=== PATIENT | female | born 1980 | race Caucasian/White ===

== ENCOUNTER 2017-08-20 13:09 | Emergency (ER) | payer OTHER ==
[~2017-08-20] VITALS: Ht 157.5 cm; Wt 88.6 kg
[2017-08-20 14:12] VITALS: BP 135/88; PULSE 85; RESP 18; O2SAT 100
--- NOTE | 2017-08-20 15:13 | ED.REPORT ---
HPI-Back Pain Under 40 Date of Service Aug 20, 2017 ED Provider: Eriberto Cheek MD Patient is a 36 year old female with a history of bowel obstruction and L3-L4 surgery who presents to the ED complaining of back pain onset 3 days ago. Associated symptoms include left leg weakness, numbness of the left foot, constipation, lower abdominal pain and urinary incontinence. Patient also reports that she has shooting pain down her left leg with movement. She denies chest pain. The patient reports that yesterday her leg gave out and she had an episode of leaked urine. Then 10 minutes later, she had another episode of weakness and urinary incontinence. The patient was seen at an ED yesterday where she was diagnosed with sciatica and prescribed Flexeril. She reports that she has not had a bowel movement for the past 5 days and started to have abdominal pain and bloated today. Nursing Notes Stated Complaint: LOWER BACK PAIN,NUMBNESS IN FOOT,BLADDER ISSUES Chief Complaint: Back Pain or Injury Nursing Notes Reviewed: Yes Allergies: Coded Allergies: hydrocodone (Verified Allergy, Intermediate, RASH, 08/20/17) tramadol (Verified Allergy, Intermediate, THROWING UP, 08/20/17) General Time Seen by MD: 15:13 Chief Complaint Back pain Hx Obtained From: Patient Arrived By: Walk-in Sudden in Onset?: Yes Onset Occurred: 3 days ago Symptom Duration: Since onset Caused by: Spontaneous/no mechanism Location: : Generalized Quality: Painful Radiation: : Left leg above knee Severity: Current: Moderate Recent Healthcare: Recent doctor visit Past Medical History Past Medical History bowel obstruction Past Surgical History L3-L4 back surgery Smoking History Unknown if Ever Smoker Social History Other Social History: Good social support, Ambulatory Status Independent Review of Systems Cardiovascular: Denies: Chest pain GI: Reports: Abdominal pain, Constipation, Denies: Vomiting Musculoskeletal: Reports: Back pain, Extremity pain Neurologic: Reports: Bladder dysfunction, Numbness, Problem walking, Weakness Complete sys rev & neg: except as marked. Physical Exam Initial Vital Signs Vital Signs (First) Date Time Temp Pulse Resp B/P Pulse Ox O2 Delivery O2 Flow Rate FiO2 08/20/17 14:12 36.9 85 18 135/88 100 Room Air Initial VS: Reviewed General/Constitutional: Awake, Alert BACK: straight leg positive 45 degrees on the right straight leg positive 30 degrees on the left decreased strength to the plantar flexion on left Neurologic: Oriented X3, Speech NL saddle anesthesia Respiratory / Chest: Atraumatic, Breath sounds NL, Breath sounds = bilat, No respiratory distress Cardiovascular: Heart rate NL, Regular rhythm, Heart sounds NL Abdomen: Atraumatic, Soft left lower quadrant tenderness Head / Eyes: Atraumatic, Normocephalic Skin: Atraumatic, Color NL, No rash, Warm, Dry Rectum / Perineum: Atraumatic, Sphincter tone NL moderate amount of stool in rectum no fecal impaction Interpretation & Diagnostics Interpretation & Diagnostics: BRAIN MRI: IMPRESSION: No acute abnormality is seen to explain patient's presenting symptoms. Mild lower lumbar spine degenerative changes are seen, which are more prominent than would be expected for a patient of this young age. Dictated by: Bautista Lopez M.D. on 08/20/2017 at 16:24 Approved by: Bautista Lopez M.D. on 08/20/2017 at 16:26 Re-Eval/Medical Decision Re-Evaluation/Progress : Time of Eval: 17:00 Re-Evaluation/Progress Note: Discussed MRI results and options for outpatient treatment. Patient understands and agrees to plan. All questions were addressed. Counseled Regarding: Diagnosis, Lab results, Need for follow-up, When/why to return to ED Discharge & Departure Impression: Primary Impression: Low back pain Chronicity: acute Back pain laterality: left Sciatica presence: with sciatica Sciatica laterality: sciatica of left side Qualified Code: M54.42 - Lumbago with sciatica, left side Disposition: Home All VS Reviewed: Yes Condition: Stable Patient Instructions: Acute Low Back Pain (ED) Additional Instructions: Your MRI did not show any acutely dangerous cause for your symptoms. You can take Decadron twice a day. Do not combine with ibuprofen. You can take 1-2 oxycodone/APAP every 6 hours as needed for severe pain. You can take up to 4,000mg of Tylenol along with the pain medication in 24 hours. Do not drink alcohol or drive while taking the pain medication. Using [place] or Miralax can help with constipation. Be sure to drink plenty of water. Try to stay somewhat active and move around (stretching and walking around the house). Do not over exert yourself though (no heavy lifting). Avoid work until you follow up with your primary care physician or your pain has improved/ resolved. Follow up with your primary care physician next week. Call tomorrow to schedule an appointment. Return to the emergency department if you develop any new or concerning symptoms including increasing pain, urinary or bowel incontinence, weakness or worsening symptoms. Aspenibe Attestation Portions of this note were transcribed by Yamileth Tan. I, Dr. Cheek personally performed the history, physical exam and medical decision-making; I reviewed and confirmed the accuracy of the information in the transcribed note. Signed by: Orville Hyman, 08/20/17 Eriberto Cheek MD Aug 20, 2017 15:13 rBenda Tan Aug 20, 2017 15:31
[2017-08-20] MEDS ORDERED: oxyCODONE-Acetamin 5-325 mg Tablet PO ONE (15:35)
--- NOTE | 2017-08-20 16:28 | DRSVH ---
PROCEDURE: MRI LUMBAR SPINE WITHOUT CONTRAST ([id number]) INDICATIONS: saddle anesthesia, L lower extrem. weakness, incon TECHNIQUE: Noncontrast sagittal T1 spin echo and T2 fast echo, sagittal STIR, axial T1 and T2 fast spin echo thr ough the lumbar spine. In cases with scoliosis, additional coronal T2 fast spin echo may be performe d. COMPARISON: None. FINDINGS: Image quality: Excellent. Alignment and Curvature: There is normal bony alignment. Bone Marrow: Marrow is of normal overall signal. No acute vertebral body compression fractures. Spinal Cord: Conus medullaris terminates at the T12-L1 level. Visualized cord demonstrates normal s ignal and size. Paraspinous Soft Tissues: No paravertebral masses. T12-L1: Normal appearance. L1-L2: Normal appearance. L2-L3: Normal appearance. L3-L4: Normal appearance. L4-L5: The disc height is well-preserved. Loss of disc signal is seen at this level. Along the pos terior aspect of the annulus fibrosis, there is a focal annular fissure seen, as on series 5 image 9 and on series 4 image 7. Mild to moderate disc bulge is seen at this level. [id number] facet hypertrophy is seen. There is minimal to mild bilateral neural foraminal narrowing seen. No signifi cant central canal narrowing is seen. L5-S1: The disc height is well-preserved. Loss of disc signal is seen at this level. Mild to moder ate disc bulge is seen. Moderate facet joint hypertrophy is seen. There is moderate right-sided and no significant left-sided neural foraminal narrowing seen. The central canal is widely patent. IMPRESSION: No acute abnormality is seen to explain patient's presenting symptoms. Mild lower lumbar spine degenerative changes are seen, which are more prominent than would be expecte d for a patient of this young age. Dictated by: Bautista Lopez M.D. on 08/20/2017 at 16:24 Approved by: Bautista Lopez M.D. on 08/20/2017 at 16:26
[2017-08-20] MEDS ORDERED: OXYC1TAB24 PO (17:20)
[2017-08-20] MEDS ORDERED: DXM4T PO (17:20)
[2017-08-20 17:34] VITALS: BP 121/86; PULSE 74; RESP 14; O2SAT 99
[2017-08-20 17:49] VITALS: BP 121/86; PULSE 74; RESP 14; O2SAT 99
== END 2017-08-20 17:50 | disposition home or self-care (01) ==
LOC: SED 13:09
DX: M54.42 Lumbago with sciatica, left side (principal); M62.81 Muscle weakness (generalized); R20.0 Anesthesia of skin; K59.00 Constipation, unspecified; R32 Unspecified urinary incontinence; M79.605 Pain in left leg; R14.0 Abdominal distension (gaseous); R26.2 Difficulty in walking, not elsewhere classified; Z98.890 Other specified postprocedural states; Z88.5 Allergy status to narcotic agent